=== PATIENT | male | born 1945 | race Caucasian/White ===

== ENCOUNTER → 2017-11-02 | Outpatient (CLI) | payer MEDICARE, OTHER | END | disposition home or self-care (01) | LOC: PCVCCLINIC 15:07 | DX: E03.9 Hypothyroidism, unspecified (principal); R55 Syncope and collapse; R01.1 Cardiac murmur, unspecified; I49.9 Cardiac arrhythmia, unspecified; E78.5 Hyperlipidemia, unspecified; I83.92 Asymptomatic varicose veins of left lower extremity; R29.898 Other symptoms and signs involving the musculoskeletal system; Z79.899 Other long term (current) drug therapy; Z79.82 Long term (current) use of aspirin | CPT/HCPCS: 80061; 93005; G0463 ==

== ENCOUNTER → 2017-11-14 | Outpatient (CLI) | payer MEDICARE, OTHER | END | disposition home or self-care (01) | LOC: PCVCIMAG 14:50 | DX: R00.2 Palpitations (principal); R01.1 Cardiac murmur, unspecified; M79.605 Pain in left leg; M79.604 Pain in right leg; M79.89 Other specified soft tissue disorders | CPT/HCPCS: 93325; 93351; 93970 ==

== ENCOUNTER → 2018-08-10 | Outpatient (CLI) | payer MEDICARE, OTHER ==
[~2018-08-10] MED LIST: DIAZEPAM 10 MG TABLET. ONE; HEPARIN for SUB-Q USE 5,000 UNIT/ML VIAL. SQ ONE; IOHEXOL 300 MG/ML 100ML VIAL. ONE; IV NORMAL SALINE 500ML BAG 500 ML ONE; LIDOCAINE 1% Multi-Dose 20 ML VIAL. ONE; MIDAZOLAM HCL/PF 2 MG/2 ML VIAL. ONE; fentaNYL PF VIAL 100 MCG/2 ML VIAL ONE
--- NOTE | 2018-08-10 14:27 | PCVCINTER ---
EXAM: 1. INTRAVASCULAR ULTRASOUND OF THE INFERIOR VENA CAVA 2. INTRAVASCULAR ULTRASOUND OF THE RIGHT COMMON AND EXTERNAL ILIAC AND COMMON FEMORAL VEINS 3. INTRAVASCULAR ULTRASOUND OF THE LEFT COMMON AND EXTERNAL ILIAC AND COMMON FEMORAL VEINS 4. INFERIOR VENA CAVA AND BILATERAL ILIOFEMORAL VENOGRAPHY INDICATION: Iliofemoral venous obstruction. Chronic Venous Insufficiency Class 4a. Leg pain and swelling. Failed conservative therapy including medical grade compression stockings for at least 3 months. Venous hypertension chronic. PROCEDURE: Procedure and risks of IVC and ileofemoral venography and intravascular ultrasound, and venous stent placement as appropriate including bleeding, infection, venous thrombosis, stent migration/thrombosis, contrast-induced nephropathy requiring dialysis, stroke, and were discussed with the patient and consent obtained. Patient was given IV antibiotics. The patient's right neck and chest was prepped and draped in the normal sterile fashion. IV conscious sedation was used throughout the procedure with appropriate monitoring. Ultrasound was used to interrogate the neck and showed the internal jugular vein to be patent. A spot ultrasound image of the internal jugular vein was saved. Under ultrasound guidance access into the right internal jugular vein was obtained and an 8F sheath was placed to the level of the lower IVC. Catheter was placed into the lower IVC and IVC cavogram performed. Catheter was placed to the level of the right common femoral vein and right iliofemoral venogram obtained. Catheter was placed to the level of the left common femoral vein and left iliofemoral venogram was obtained. The 8 [place] intravascular ultrasound catheter was then placed to the level of the right common femoral vein and intravascular ultrasound evaluation of the right common femoral, right external iliac, and right common iliac veins was accomplished in a pull-back fashion. The 8 [place] intravascular ultrasound catheter was then placed to the level of the left common femoral vein and intravascular ultrasound evaluation of the left common femoral, left external iliac, and left common iliac veins was accomplished in a pull-back fashion. Intravascular ultrasound evaluation of the inferior vena cava was then accomplished in a pullback fashion. Sheath was removed and hemostasis obtained using manual pressure. FINDINGS: IVC INTRAVASCULAR ULTRASOUND: Normal vessel: 11.7 x 21.4 mm. Area = 203.5 sq. mm. RIGHT COMMON ILIAC VEIN INTRAVASCULAR ULTRASOUND: Normal vessel: 12.7 x 19.6 mm. Area = 192.9 sq. mm. RIGHT EXTERNAL ILIAC VEIN INTRAVASCULAR ULTRASOUND: Normal vessel: 11.8 x 14.2 mm. Area = 125.2 sq. mm. RIGHT COMMON FEMORAL VEIN INTRAVASCULAR ULTRASOUND: Normal vessel: 9.0 x 12.7 mm. Area = 96.2 sq. mm. LEFT COMMON ILIAC VEIN INTRAVASCULAR ULTRASOUND: Normal vessel: 13.9 x 19.4 mm. Area = 214.1 sq. mm. Minimum vessel diameter: 4.7 x 20.8 mm. Area = 85.7 sq. mm. LEFT EXTERNAL ILIAC VEIN INTRAVASCULAR ULTRASOUND: Normal vessel: 9.3 x 15.6 mm. Area = 126.0 sq. mm. LEFT COMMON FEMORAL VEIN INTRAVASCULAR ULTRASOUND: Normal vessel: 6.5 x 14.4 mm. Area = 86.2 sq. mm. VENOGRAPHY: INFERIOR VENA CAVA: Vessel is patent without significant stenosis, scarring, or extrinsic compression. RIGHT COMMON ILIAC VEIN: Vessel is patent without significant stenosis, scarring, or extrinsic compression. RIGHT EXTERNAL ILIAC VEIN: Vessel is patent without significant stenosis, scarring, or extrinsic compression. RIGHT COMMON FEMORAL VEIN: Vessel is patent without significant stenosis, scarring, or extrinsic compression. LEFT COMMON ILIAC VEIN: Mild to moderate extrinsic compression of the upper vessel not felt to be critically flow-limiting. LEFT EXTERNAL ILIAC VEIN: Vessel is patent without significant stenosis, scarring, or extrinsic compression. LEFT COMMON FEMORAL VEIN: Vessel is patent without significant stenosis, scarring, or extrinsic compression. IMPRESSION: Mild/moderate extrinsic compression of the upper left common iliac vein not felt be flow-limiting. Otherwise intravascular ultrasound and venographic evaluation of the inferior vena cava and the common and external iliac and common femoral veins bilaterally is within normal limits. No evidence of significant venous obstruction is identified. LOC:[id number]
== END | disposition home or self-care (01) ==
LOC: PCVCINTER 09:28
PROVIDERS: ATTEND Nuclear Medicine Nuclear Cardiology
DX: I87.2 Venous insufficiency (chronic) (peripheral) (principal); I83.92 Asymptomatic varicose veins of left lower extremity; Z98.890 Other specified postprocedural states; Z82.49 Family history of ischemic heart disease and other diseases of the circulatory system; Z79.899 Other long term (current) drug therapy; Z96.611 Presence of right artificial shoulder joint
CPT/HCPCS: 36012; 37252; 37253; 75822; 75825; 76937; 99152; 99153; C1751; C1753; C1769; C1894; J1644; J2250; J3010; J7040; Q9967

== ENCOUNTER → 2018-08-11 | Outpatient (CLI) | payer MEDICARE, OTHER ==
[~2018-08-11] MED LIST changes: +ARNICA TOPICAL GEL 1.5OZ TUBE. TP ONE; +CEPHALEXIN 250 MG CAPSULE. ONE; -HEPARIN for SUB-Q USE 5,000 UNIT/ML VIAL. SQ ONE; -IOHEXOL 300 MG/ML 100ML VIAL. ONE; +IV NORMAL SALINE 1000ML BAG 2,000 ML ONE; -IV NORMAL SALINE 500ML BAG 500 ML ONE; +LIDOCAINE 1%/EPI 1:100,000 20 ML VIAL. ONE; -MIDAZOLAM HCL/PF 2 MG/2 ML VIAL. ONE; +SODIUM BICARBONATE 50 MEQ/50 ML VIAL. ONE; -fentaNYL PF VIAL 100 MCG/2 ML VIAL ONE
--- NOTE | 2018-08-11 14:57 | PCVCINTER ---
EXAM: 1. LEFT GREAT SAPHENOUS VEIN ENDOVENOUS LASER ABLATION 2. MICRO STAB PHLEBECTOMIES OF THE ANTERIOR MEDIAL LEFT THIGH AND LOWER LEG. INDICATION: Chronic Venous Insufficiency Class 4a. Leg pain and swelling. Failed conservative therapy including medical grade compression stockings for at least 3 months. Venous hypertension chronic. PROCEDURE: Procedure and risks of endovenous laser ablation including thrombosis, vascular injury, nerve injury, skin necrosis, and infection were discussed with the patient and consent obtained. The left leg was prepped and draped in the normal sterile fashion. Using ultrasound guidance access into the left great saphenous vein was obtained and a 5F 50 cm long catheter was advanced to 2 cm below the saphenofemoral junction. The laser fiber was advanced through the catheter to its tip and the catheter partially retracted. Abundant tumescent anesthesia using a dilute lidocaine solution was given in the perivenous tissues throughout the length of the laser fiber. Ultrasound confirmed good position of the distal tip of the laser fiber as well as direct transcutaneous visualization. The 1470 [place]ornier laser was set to 6 ignacio and a slow continuous pull-back technique employed to deliver 1795 Joules throughout the treated segment. Catheter and fiber were removed and hemostasis obtained. Multiple 10 - 20 stab incision micro-phlebectomies were performed in the anterior medial mid/lower left thigh and lower leg.. No immediate complications. The leg was dressed and wrapped appropriately and reinforced with a compression stocking. IMPRESSION: Satisfactory endovenous laser ablation of the left great saphenous vein. Satisfactory stab microphlebectomies in the left leg as noted above. EXAM: 1. RIGHT GREAT SAPHENOUS VEIN ENDOVENOUS LASER ABLATION 2. MICRO STAB PHLEBECTOMIES OF THE ANTERIOR MEDIAL RIGHT THIGH AND LOWER LEG. INDICATION: Chronic Venous Insufficiency Class 4a. Leg pain and swelling. Failed conservative therapy including medical grade compression stockings for at least 3 months. Venous hypertension chronic. PROCEDURE: Procedure and risks of endovenous laser ablation including thrombosis, vascular injury, nerve injury, skin necrosis, and infection were discussed with the patient and consent obtained. The right leg was prepped and draped in the normal sterile fashion. Using ultrasound guidance access into the right great saphenous vein was obtained and a 5F 60 cm long catheter was advanced to 2 cm below the saphenofemoral junction. The laser fiber was advanced through the catheter to its tip and the catheter partially retracted. Abundant tumescent anesthesia using a dilute lidocaine solution was given in the perivenous tissues throughout the length of the laser fiber. Ultrasound confirmed good position of the distal tip of the laser fiber as well as direct transcutaneous visualization. The 1470 Dornier laser was set to 6 ignacio and a slow continuous pull-back technique employed to deliver 2057 Joules throughout the treated segment. Catheter and fiber were removed and hemostasis obtained. Multiple 10 - 20 stab incision micro-phlebectomies were performed in the anterior medial right thigh and lower leg. No immediate complications. The leg was dressed and wrapped appropriately and reinforced with a compression stocking. IMPRESSION: Satisfactory endovenous laser ablation of the right great saphenous vein. Satisfactory stab microphlebectomies in the right leg as noted above. LOC:[id number]
== END | disposition home or self-care (01) ==
LOC: PCVCINTER 10:29
PROVIDERS: ATTEND Nuclear Medicine Nuclear Cardiology
DX: I83.813 Varicose veins of bilateral lower extremities with pain (principal); I87.2 Venous insufficiency (chronic) (peripheral); Z82.49 Family history of ischemic heart disease and other diseases of the circulatory system; Z79.899 Other long term (current) drug therapy; Z96.611 Presence of right artificial shoulder joint; Z98.890 Other specified postprocedural states
CPT/HCPCS: 36478; 37765; C1751; C1769; C1894; J3490; J7030; 36479

== ENCOUNTER → 2018-12-04 | Outpatient (CLI) | payer MEDICARE, OTHER ==
--- NOTE | 2018-12-04 14:32 | PCVCIMAG ---
EXAM: BILATERAL SUPERFICIAL VENOUS DUPLEX INDICATION: Leg pain and swelling. FINDINGS: Right leg: No thrombus in the common femoral, main femoral, or popliteal veins. These veins are compressible. Right Great Saphenous Vein: Occlusion throughout the length of the right great saphenous vein consistent with satisfactory prior ablation procedure. Right Small Saphenous Vein: At the saphenopopliteal junction the diameter is 3.4 mm, and in the calf it is 5.4 mm. There is not significant venous insufficiency/reflux throughout. Venous insufficiency/reflux duration is 0 seconds. There is not a cranial extension present. Left leg: No thrombus in the common femoral, main femoral, or popliteal veins. These veins are compressible. Left Great Saphenous Vein: Occlusion throughout the length of the left great saphenous vein consistent with satisfactory prior ablation procedure. Left Small Saphenous Vein: At the saphenopopliteal junction the diameter is 2.9 mm, and in the calf it is 4.0 mm. There is not significant venous insufficiency/reflux throughout. Venous insufficiency/reflux duration is 0.3 seconds. There is a cranial extension present. IMPRESSION: Right Great Saphenous Vein: Satisfactory post ablation change in the right great saphenous vein. Right Small Saphenous Vein: No significant venous insufficiency/reflux is present as noted above. Left Great Saphenous Vein: Satisfactory post ablation change in the left great saphenous vein. Left Small Saphenous Vein: No significant venous insufficiency/reflux is present as noted above. LOC:[place] [id number]
== END | disposition home or self-care (01) ==
LOC: PCVCIMAG 07:56
PROVIDERS: ATTEND Nuclear Medicine Nuclear Cardiology
DX: I87.2 Venous insufficiency (chronic) (peripheral) (principal); R29.898 Other symptoms and signs involving the musculoskeletal system
CPT/HCPCS: 93970

== ENCOUNTER → 2018-12-05 | Outpatient (CLI) | payer MEDICARE, OTHER | END | disposition home or self-care (01) | LOC: PCVCCLINIC 08:40 | PROVIDERS: ATTEND Nuclear Medicine Nuclear Cardiology | DX: I87.2 Venous insufficiency (chronic) (peripheral) (principal); M79.89 Other specified soft tissue disorders; R01.1 Cardiac murmur, unspecified; R29.898 Other symptoms and signs involving the musculoskeletal system; Z79.899 Other long term (current) drug therapy | CPT/HCPCS: G0463 ==

== ENCOUNTER → 2019-01-16 | Outpatient (CLI) | payer MEDICARE, OTHER | END | disposition home or self-care (01) | LOC: PCVCCLINIC 15:30 | PROVIDERS: ATTEND Internal Medicine Cardiovascular Disease | DX: E78.5 Hyperlipidemia, unspecified (principal); E78.1 Pure hyperglyceridemia; R40.0 Somnolence; R68.89 Other general symptoms and signs | CPT/HCPCS: 36415; 80061; 93005; G0463 ==

== ENCOUNTER → 2019-03-07 | Outpatient (CLI) | payer MEDICARE, OTHER ==
--- NOTE | 2019-03-07 10:59 | PCVCIMAG ---
APPROVED REPORT Study performed: 03/07/2019 09:52:00 Exam: Stress Echocardiogram Indication: fatigue, decreased exercise tolerance, fam hx cad, sleep apnea Patient Location: Echo lab Stress Nurse: Bessy Jackman RN Status: routine Ht: 6 ft 2 in HR: 90 bpm BP: 122/76 mmHg Rhythm: NSR w PACs Procedure The patient underwent an Exercise Stress Test using the Krish Protocol. Blood pressure, heart rate, and EKG were monitored. An Echocardiogram was performed by engine test cell technician in four stages in quad fashion. At peak stress, four selected images were obtained and placed side by side with resting images for comparison. Stress Test Details Stress Test: Exercise stress testing was performed using a modified Krish protocol. HR Resting HR: 90 bpmMax Heart Rate (APMHR): 149 bpm Max HR Achieved: 164 bpmTarget HR (85% APMHR): 126 bpm % of APMHR: 110 Recovery HR: 107 bpm HR response to stress: Normal HR response to stress BP Resting BP: 122/76 mmHg Max BP: 180/84 mmHg Recovery BP: 130/70 mmHg BP response to stress: Normal blood pressure response to stress. ECG Resting ECG: Sinus Rhythm w/ frequent PACs and PVCs Stress ECG: Sinus Rhythm ST Change: Normal Arrhythmia: PACs and PVCs that improved to NSR with exertion Recovery ECG: Sinus Rhythm Recovery ST Change: Normal Recovery Arrhythmia: PACs and PVCs Clinical Reason for Termination: Maximal effort Stress Symptoms: Dyspnea Exercise duration: 8 min 32 sec Highest Stage Achieved: Stage 3: 3.4 mph at 14% grade. Exercise capacity: 10.1 METs Overall Exercise Capacity for Age: Normal Scale: Sedentary Angina Score: None Pre-Stress Echo The resting Echocardiogram showed normal left ventricular contractility with an estimated Ejection Fraction of about >55%. Normal wall motion in all segments on baseline images. Post-Stress Echo The stress Echocardiogram showed normal left ventricular contractility with an estimated Ejection Fraction of about 65%. Normal augmentation of wall motion in all segments on post stress images. Clinical No clinical or ECG evidence for ischemia. Conclusion Clinical Response: Non-ischemic Exercise Capacity: Average Stress ECG Response: Non-ischemic Stress Echo Images: Non-ischemic The left ventricle is normal in size and wall thickness in both the rest and stress images. Trace mitral regurgitation with moderate posterior mitral annular calcification, no mitral stenosis. Moderately calcified aortic valve leaflets, no regurgitation or stenosis. JOSHUA-1.7 cm2 and mean gradient 9 mmHg and peak gradient 18 mmHg. Trace tricuspid insufficiency with PAP of 30 mmHg. No pulmonic regurgitation. Other Information Study Quality: Adequate <Conclusion> The left ventricle is normal in size and wall thickness in both the rest and stress images. Trace mitral regurgitation with moderate posterior mitral annular calcification, no mitral stenosis. Moderately calcified aortic valve leaflets, no regurgitation or stenosis. JOSHUA-1.7 cm2 and mean gradient 9 mmHg and peak gradient 18 mmHg. Trace tricuspid insufficiency with PAP of 30 mmHg. No pulmonic regurgitation.
== END | disposition home or self-care (01) ==
LOC: PCVCIMAG 10:19
PROVIDERS: ATTEND Internal Medicine Cardiovascular Disease
DX: I35.8 Other nonrheumatic aortic valve disorders (principal); E78.5 Hyperlipidemia, unspecified
CPT/HCPCS: 36415; 80061; 93325; 93351